=== PATIENT | male | born 1960 | race Caucasian/White ===

== ENCOUNTER 2021-10-28 07:46 | Inpatient (IN) ==
--- NOTE | 2021-10-08 10:11 | PAT Medication Instructions ---
Medication Instructions Date of Service October 08, 2021 Home Medications pantoprazole 20 mg tablet,delayed release 20 mg PO QAM Take morning of surgery With a small sip of water, OTHERWISE NOTHING TO EAT OR DRINK AFTER MIDNIGHT: pantoprazole 20 mg tablet,delayed release 20 mg PO QAM Other Notes If you have any questions please call us at [phone] or [phone] or [phone] or [phone]
--- NOTE | 2021-10-13 11:06 | Anesthesiology Consultation ---
Date of Service October 13, 2021 Assessment & Plan (1) Encounter for pre-operative examination: Chart Review Chart Review: Pending: Refer to Additional Notes / Consult section (pending preop labs/UA and preop Covid testing results ) and Patient seen in Pre Admission Testing Surgery initially scheduled for 10/29/21- surgery currently cancelled secondary to Covid surgery- patient has opted to wait until surgery rescheduled to get labs and UA done (order given to patient) Per PAT appt on 10/13/21, patient denies any recent travel or large group activities. No known Covid positive exposures or Covid related symptoms. No known Covid infection in the past 90 days. Pt is NOT vaccinated for Covid. Preop Covid testing needed 2-4 days prior to surgery (pt voices understanding) = will await results. Educated on importance of self quarantining, social distancing and wearing mask in public for the patient one week prior to surgery and after Covid testing done Teaching & Discussion Pre-Anesthesia Teaching/Discussion Notes: Instructed NPO after midnight before surgery,except medications with 15 cc of water. Medication instructions provided according to the PAT guidelines. History Surgery Operation Date: 10/29/21 07:45 Proposed Procedures p L4-S1 Decompression, L3-S1 Fusion, Spinal Cord Monitoring - Heraclio Betts, Height/Weight Height: 5 ft 8.5 in Weight: 101.3 kg Allergies Allergy/AdvReac Type Severity Reaction Status Date / Time No Known Allergies Allergy Verified 10/07/21 16:51 Medications Home Medications Medication Instructions Recorded Confirmed Last Taken pantoprazole 20 mg tablet,delayed 20 mg PO QAM 12/22/19 10/07/21 09/08/21 04:30 release Past Medical History Medical History Degenerative disc disease GERD (gastroesophageal reflux disease) Well controlled and stable with med History of COVID-13 JUL 2021 - [facility] - COUGH, MUCOUS, TIRED, FEVER, LOST TASTE AND SMELL - NO CURRENT SYMPTOMS. [place] (hard of hearing) No hearing aids needed Exercise / Class Metabolic Activity II 4-5 Yardwork/Stairs/Walk up hill (one flight of stairs - no chest or SOB) Past Family History Family History Daughter Post-operative nausea and vomiting Past Surgical History Surgical History History of cholecystectomy + umbilical hernia repair 09/08/21 [facility] History of colonoscopy History of esophagogastroduodenoscopy (EGD) History of hemorrhoidectomy History of shoulder surgery LEFT History of surgery REMOVAL OF BENIGN TUMOR FROM FOREHEAD History of tooth extraction Hx of LASIK Past Anesthesia History No Hx of Anesthesia Complications and No Family Hx of Anesthesia Complications (with exception to daughter- PONV ) Social History Smoking Status: Never smoker Do You Dip or Chew Tobacco: No (hx) Hx Alcohol Use: Yes Alcohol type: beer alcohol intake frequency: 3 or more drinks per day (2-3 beers/day) Hx Substance Use: No substance use type: does not use Review of Systems Hx of snoring - no witnessed apnea- no hx of sleep apnea Patient denies chest pain, shortness of breath, dyspnea on exertion,, cough, wheezing, palpitations. No hx of seizures, stroke, [place]. No hx of blood clots or blood transfusions Physical Exam Vital Signs VITALS BP 131/83 P 65 TEMP 97.9 SP02 95% RESP 16 Constitutional no acute distress ENMT Mouth: no TMJ clicking Thyromental Distance: > or= 3.5 Finger Breadths (3.5) Mallampati Class: II Partial dentures on top and bottom Neck + limited neck extension (mild ) Respiratory normal respiratory effort; no respiratory distress Auscultation: lungs clear to auscultation bilaterally; no wheezes Cardiovascular Rate/Rhythm: regular rate and regular rhythm Heart Sounds: no murmur Vessels: no carotid bruit Musculoskeletal Spine: no pain with cervical ROM Extremities: extremities normal to inspection Psychiatric Orientation: alert Testing Electrocardiogram Date: 08/27/21 Findings: + NSR @ (75bpm) Normal EKG per cardio. Chest X-Ray Date: 10/13/21 Findings: + NAD
--- NOTE | 2021-10-21 13:53 | History & Physical Report ---
Date of Service October 21, 2021 Assessment & Plan (1) Neurogenic claudication due to lumbar spinal stenosis: Plan: Assessment lumbar spinal stenosis with neurogenic medication. Plan at this time patient's failed extensive course of nonoperative care as it is a steady decline in status over the past several years. His most recent MRI demonstrates evidence of spinal stenosis most impressive at L4-L5 L5-S1 with components of subarticular foraminal disease clearly concerning for symptom complex. In light of his advanced decline and lack of function and involved the activities of daily living recommending urgent lumbar decompression fusion L4-5 L5-S1. History of Present Illness Chief Complaint: Back and bilateral leg pain Primary Care Provider: Jorge Luis Tillman DO This is a 61-year-old male who presents with steady decline in status over the past several years with back and bilateral leg pain. He is undergone several courses of physical therapy as well as epidural injection without a significant relief. He is limited to any prolonged standing and walking obtains relief only with sitting. Allergies Allergy/AdvReac Type Severity Reaction Status Date / Time No Known Allergies Allergy Verified 10/07/21 16:51 Home Medications Medication Instructions Recorded Confirmed Type pantoprazole 20 mg tablet,delayed 20 mg PO QAM 12/22/19 10/07/21 History release Past Med/Surg History Medical History Degenerative disc disease GERD (gastroesophageal reflux disease) Well controlled and stable with med History of COVID-13 JUL 2021 - [facility] - COUGH, MUCOUS, TIRED, FEVER, LOST TASTE AND SMELL - NO CURRENT SYMPTOMS. [place] (hard of hearing) No hearing aids needed Surgical History History of cholecystectomy + umbilical hernia repair 09/08/21 [facility] History of colonoscopy History of esophagogastroduodenoscopy (EGD) History of hemorrhoidectomy History of shoulder surgery LEFT History of surgery REMOVAL OF BENIGN TUMOR FROM FOREHEAD History of tooth extraction Hx of LASIK Family History Daughter Post-operative nausea and vomiting Social History Smoking Status: Never smoker Second Hand Exposure: No; Hx Alcohol Use: Yes Alcohol type: beer Hx Substance Use: No Preferred Language: [place] Communication Ability: Effective 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 Heart regular rhythm. Bench exam he is able to stand and ambulate with antalgic gait. He does exhibit limitation with standing in the room secondary to neurogenic claudicatory pain. Bench exam he has diminished reflexes with a 4/5 plantar dorsiflexion extensor hallucis longus bilaterally.
--- NOTE | 2021-10-22 15:21 | History & Physical Report ---
Date of Service October 22, 2021 Assessment & Plan (1) Neurogenic claudication due to lumbar spinal stenosis: Plan: Assessment lumbar spinal stenosis with neurogenic claudication. Plan at this time in light of his progressive decline and risk for permanent neurologic deficits I am recommending urgent lumbar decompression and fusion to address his severe spinal stenosis. This would require decompression L4-S1. Risk benefits pros cons alternatives were outlined in detail. History of Present Illness Chief Complaint: Back and bilateral leg pain Primary Care Provider: Jorge Luis Tillman DO This is a 61-year-old male who presents with marked decline in status involving back and bilateral leg pain consistent with neurogenic claudication. He notes inability to ambulate any distance. He has failed extensive course of physical therapy and multiple lumbar injections. Allergies Allergy/AdvReac Type Severity Reaction Status Date / Time No Known Allergies Allergy Verified 10/07/21 16:51 Home Medications Medication Instructions Recorded Confirmed Type pantoprazole 20 mg tablet,delayed 20 mg PO QAM 12/22/19 10/07/21 History release Past Med/Surg History Medical History Degenerative disc disease GERD (gastroesophageal reflux disease) Well controlled and stable with med History of COVID-13 JUL 2021 - [facility] - COUGH, MUCOUS, TIRED, FEVER, LOST TASTE AND SMELL - NO CURRENT SYMPTOMS. [place] (hard of hearing) No hearing aids needed Surgical History History of cholecystectomy + umbilical hernia repair 09/08/21 [facility] History of colonoscopy History of esophagogastroduodenoscopy (EGD) History of hemorrhoidectomy History of shoulder surgery LEFT History of surgery REMOVAL OF BENIGN TUMOR FROM FOREHEAD History of tooth extraction Hx of LASIK Family History Daughter Post-operative nausea and vomiting Social History Smoking Status: Never smoker Second Hand Exposure: No; Hx Alcohol Use: Yes Alcohol type: beer Hx Substance Use: No Preferred Language: Setswana Communication Ability: Effective Assisted Living Assistant Required: No Beliefs That Will Affect Care: None Current Living Situation: Alone Feels Safe at Home: Yes Physical Exam Physical Exam: On exam he is in obvious distress with ambulation. He exhibits 4-/5 bilateral dorsiflexion extensor pollicis longus. He is a 5 or 5 plantar flexion quadriceps. Sensory appears to be intact. Deep tendon reflexes absent.
[~2021-10-28 07:46] MED LIST: ACETAMINOPHEN 500 MG TAB PO SCH; CeleBREX 200 MG CAP PO SCH; GABAPENTIN 600 MG DOSE PO SCH; LR 15ML/HR IV SCH; SUGAMMADEX SODIUM 200 MG/2 ML VIAL IV ONE; ceFAZolin 2000MG 2,000 MG/15 ML SYR IV SCH
[2021-10-28] MEDS ORDERED: ePHEDrine sulfate 50 MG/ML AMP IV PRN (08:52)
[2021-10-28] MEDS ORDERED: fentaNYL citrate 100 MCG/2 ML VIAL IV PRN (08:52)
[2021-10-28] MEDS ORDERED: HYDROmorphone INJ 1 MG/ML SYRINGE IV PRN (08:52)
[2021-10-28] MEDS ORDERED: ATROPINE SULFATE 0.1 MG/ML 10ML SYR IV PRN (08:52)
[2021-10-28] MEDS ORDERED: ONDANSETRON INJ 2 MG/ML 2 ML VIAL IV PRN ×2 (08:52→15:47)
--- NOTE | 2021-10-28 10:00 | History & Physical Bridge Note ---
Date of Service October 28, 2021 History & Physical Bridge Note I have examined the patient, reviewed the History & Physical and in the interval since the performance of the History & Physical I have noted the following changes of clinical significance: no changes noted
--- NOTE | 2021-10-28 10:01 | History & Physical Report ---
Date of Service October 28, 2021 Assessment & Plan (1) Neurogenic claudication due to lumbar spinal stenosis: Plan: L4-S1 decompression, L3-S1 fusion History of Present Illness Chief Complaint: Back and leg pain Primary Care Provider: Jorge Luis Tillman DO This is a 61-year-old male presents with chronic persistent back and leg pain. Failing extensive course of nonoperative care is here for surgical invention. Allergies Allergy/AdvReac Type Severity Reaction Status Date / Time No Known Allergies Allergy Verified 10/28/21 08:48 Home Medications Medication Instructions Recorded Confirmed Type pantoprazole 20 mg tablet,delayed 20 mg PO QAM 12/22/19 10/28/21 History release Past Med/Surg History Medical History Degenerative disc disease GERD (gastroesophageal reflux disease) Well controlled and stable with med History of COVID-13 JUL 2021 - [facility] - COUGH, MUCOUS, TIRED, FEVER, LOST TASTE AND SMELL - NO CURRENT SYMPTOMS. [place] (hard of hearing) No hearing aids needed Surgical History History of cholecystectomy + umbilical hernia repair 09/08/21 [facility] History of colonoscopy History of esophagogastroduodenoscopy (EGD) History of hemorrhoidectomy History of shoulder surgery LEFT History of surgery REMOVAL OF BENIGN TUMOR FROM FOREHEAD History of tooth extraction Hx of LASIK Family History Daughter Post-operative nausea and vomiting Social History Smoking Status: Never smoker Second Hand Exposure: No; Do You Dip or Chew Tobacco: No (hx); Tobacco Cessation Education Requested by Patient: No Hx Alcohol Use: Yes Alcohol type: beer Hx Substance Use: No Preferred Language: Indonesian Communication Ability: Effective 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
[2021-10-28] MEDS ORDERED: EPINEPHrine INJ 1 MG/ML AMP ONE (10:07)
[2021-10-28] MEDS ORDERED: BUPIVACAINE 0.5 % 5 MG/1 ML MPF 30ML VIAL ONE (10:07)
[2021-10-28] MEDS ORDERED: ONDANSETRON INJ 2 MG/ML 2 ML VIAL ONE (10:10)
[2021-10-28] MEDS ORDERED: NEOSTIGMINE METHYLSULFATE 1 MG/ML 10ML VIAL ONE (10:10)
[2021-10-28] MEDS ORDERED: DEXAMETHASONE SOD INJ 4 MG/ML VIAL ONE (10:10)
[2021-10-28] MEDS ORDERED: GLYCOPYRROLATE 0.2 MG/ML VIAL ONE (10:10)
[2021-10-28] MEDS ORDERED: LIDOCAINE 2% 2 ML VIAL/AMP(20MG/ML) INFIL ONE (10:10)
[2021-10-28] MEDS ORDERED: MIDAZOLAM HCL 1 MG/ML 2ML VIAL ONE (10:10)
[2021-10-28] MEDS ORDERED: fentaNYL citrate 100 MCG/2 ML VIAL ONE (10:10)
[2021-10-28] MEDS ORDERED: PROPOFOL IV EMULSION 10 MG/ML 20 ML VIAL IV ONE ×2 (10:10→11:47)
[2021-10-28] MEDS ORDERED: HYDROmorphone INJ 2 MG/ML SYR/VIAL ONE (10:38)
[2021-10-28] MEDS ORDERED: FLOSEAL HEMOSTATIC MATRIX 10ML TOP ONE (10:59)
[2021-10-28] MEDS ORDERED: ePHEDrine sulfate 50 MG/ML SYR ONE (11:24)
--- NOTE | 2021-10-28 13:06 | Operative Report ---
Post Operative Report Pre & Post Diagnosis Operation Date: 10/28/21 10:05 Pre-Op Diagnosis: Spinal Stenosis,Lumbar Region without Neurogenic Post-Op Diagnosis: Spinal Stenosis,Lumbar Region without Neurogenic Operation Date: 10/29/21 07:45 <No data on this case meets the specified criteria> I identified the patient and participated in the time-out.: Yes Procedure Operation Date: 10/28/21 10:05 Actual Procedures #1 lumbar decompression bilateral medial facetectomies and foraminotomies L3-L4 L4-L5 L5-S1. #2 posterior spinal fusion L3-L4 L4-5 L5-S1. #3 placement posterior segmental instrumentation L3-S1. #4 interbody fusion L3-4, L4-5, L5- S1. #3 5 placement of titanium cage 11 x 26 mm at L3-L4 13 x 26 mm at L4-5 and 13 x 26 mm at L5-S1. #6 placement locally harvested morselized autograft in the posterior gutters. #7 placement of I factor combined with V toss in the interbody space and posterior lateral gutters. <No data on this case meets the specified criteria> Surgeon Heraclio Betts, DO Medical Appliance Maker Yocasta Pat Estimated Blood Loss 200 Findings See Below Patient is 5 foot 8 inches tall weighing over 97 kg with a BMI in excess of 32. The patient's body habitus did require her deepest retractors longus instruments in order to perform his procedure. This at least 50% increased operative time. Specimens None Indications this is a 61-year-old male who presents above-mentioned diagnosis after failing course of nonoperative care is here for surgical invention. Description of Procedure Patient was met with identified informed consent obtained. Patient was then taken to the operative suite underwent ablation placed in a prone position on the [facility] frame. All bony prominences well-padded eyes inspected to ensure no external pressure placed upon the. This point the lumbar spine is prepped and draped in a sterile fashion. Sharp dissection with the assistance of Bovie cautery was performed down to and exposing the lamina transverse processes of L3-L4-L5 and the sacral ala bilaterally. From caudal to cephalad fashion complete laminectomy of L5 L4 and L3 was performed including bilateral medial facetectomies and foraminotomies addressing all spinal stenosis. Pedicle screws were then placed in L3-L4-L5 and S1 levels bilaterally with assistance of fluoroscopy and appropriately sized mikel placed. By way the transforaminal approach on the right a complete discectomy of L5-S1 was performed endplates curetted to subcortical being bone and a 13 x 26 mm titanium cage filled with I factor tapped in position. Then proceeded to L4-L5 and again by way of a transforaminal portion right complete discectomy performed endplates curetted to subcortical bleeding bone and again a 13 x 26 mm titanium cage filled with I factor tapped in position. Lastly approached the L3-L4 level again bilateral transforaminal portion right complete discectomy performed endplates curetted to subcortical bleeding bone and an 8 x 26 mm titanium cage filled with I factor tapped in position. The rods were then compressed locked into final position bilaterally. The transverse processes of L3-L4-L5 and the sacral ala burred to subcortically bone. The remaining I factor combined with V toss and locally harvested morselized autograft was placed in the posterior lateral gutters. 15 round JEANETTE drain inserted. The incision was then closed with 1 Vicryl in the fascia 2-0 Vicryl subcutaneously and 4 Monocryl for final skin closure. Steri-Strip sterile dressing was placed. Patient waken taken to PACU stable condition. Please note spinal cord monitoring was utilized at the proced ure no changes noted. Lastly Yocasta Pat was present at the entire surgery involved in patient positioning complex portions of the procedure and final skin closure. I attest to the content of the Intraoperative Record and any orders documented therein. Any exceptions are noted below.
--- NOTE | 2021-10-28 13:14 | Fluoroscopy Report ---
FL lumbar spine 2-3V CLINICAL HISTORY: L3-S1 decompression and fusion. COMPARISON STUDY: None. FLUOROSCOPY TIME: 33 seconds. FINDINGS: 2 fluoroscopic spot images of the lumbar spine demonstrate posterior decompression and fusi on from L3 through S1 with pedicle screws and rods. Hardware appears intact. Disc spacers are placed. IMPRESSION: Fluoroscopic assistance provided for L3-S1 posterior decompression and fusion. ACT 112: Negative or not required by law. Electronically signed by: Raffaele Manzo M.D. 10/28/2021 1:12 PM
--- NOTE | 2021-10-28 14:51 | Anesthesiology Progress Note ---
Date of Service October 28, 2021 Anesthesia Post Procedure Vital Signs Vital Signs: Temp Pulse Pulse Resp BP Pulse Ox 10/28/21 14:25 67 10 L 125/71 96 10/28/21 14:15 66 12 123/68 92 10/28/21 14:05 68 12 144/83 H 99 10/28/21 13:55 69 12 123/80 95 10/28/21 13:45 69 12 129/73 98 10/28/21 13:35 76 15 129/79 100 10/28/21 13:27 97.7 F 99 H 14 140/73 97 10/28/21 08:49 97.9 F 63 18 139/66 96 Pain Intensity Lower Back: Pain Intensity: 6 Transfer of Care Handoff Completed per policy Notes Mental Status: alert / awake / arousable and participated in evaluation Patient Amnestic to Procedure: Yes Nausea / Vomiting: adequately controlled Pain: adequately controlled Airway Patency, RR, SpO2: stable & adequate BP & HR: stable & adequate Hydration State: stable & adequate Anesthetic Complications: no major complications apparent and Pt Satisfied with anesthetic care
[2021-10-28] MEDS ORDERED: METOCLOPRAMIDE HCL INJ 5 MG/ML 2 ML VIAL IV PRN (15:47)
[2021-10-28] MEDS ORDERED: DO NOT ADMINISTER PNEUMOCOCCAL VACCINE PRN (15:47)
[2021-10-28] MEDS ORDERED: LORazepam 0.5 MG/1 ML VIAL IV PRN (15:47)
[2021-10-28] MEDS ORDERED: SOD PHOSPHATE/SOD BIPHOSPHATE ENEMA 132 ML BTL PR PRN (15:47)
[2021-10-28] MEDS ORDERED: PROMETHAZINE HCL 12.5 MG in SODIUM CHLORIDE 0.9% 50 ML IV PRN (15:47)
[2021-10-28] MEDS ORDERED: FAMOTIDINE 20 MG TAB PO PRN (15:47)
[2021-10-28] MEDS ORDERED: hydrOXYzine HCl 25 MG TAB PO PRN (15:47)
[2021-10-28] MEDS ORDERED: DO NOT ADMINISTER FLU VACCINE PRN (15:47)
[2021-10-28] MEDS ORDERED: diphenhydrAMINE Capsule 25 MG CAP PO PRN (15:47)
[2021-10-28] MEDS ORDERED: LORazepam 0.5 MG TAB PO PRN (15:47)
[2021-10-28] MEDS ORDERED: ALUMINUM/MAGNESIUM SUSP 30 ML UDC PO PRN (15:47)
[2021-10-28] MEDS ORDERED: MAGNESIUM HYDROXIDE SUSP 30 ML UDC PO PRN (15:47)
[2021-10-28] MEDS ORDERED: NALOXONE HCL 0.4 MG/1 ML VIAL/CARP IV PRN (15:47)
[2021-10-28] MEDS ORDERED: ONDANSETRON 4 MG OD TAB PO PRN (15:47)
[2021-10-28] MEDS ORDERED: bisacodyL 10 MG SUPP PR PRN (15:47)
[2021-10-28] MEDS ORDERED: HYDROmorphone INJ 0.5 MG/0.5 ML SYR IV PRN (15:47)
--- NOTE | 2021-10-28 16:07 | Consultation ---
Date of Consultation October 28, 2021 Assessment & Plan (1) Neurogenic claudication due to lumbar spinal stenosis: (2) GERD (gastroesophageal reflux disease): (3) Sleep related hypoxia: (4) Alcohol use: Neurogenic claudication due to lumbar spinal stenosis Actual Procedures #1 lumbar decompression bilateral medial facetectomies and foraminotomies L3-L4 L4-L5 L5-S1. #2 posterior spinal fusion L3-L4 L4-5 L5-S1. #3 placement posterior segmental instrumentation L3-S1. #4 interbody fusion L3-4, L4-5, L5- S1. #3 5 placement of titanium cage 11 x 26 mm at L3-L4 13 x 26 mm at L4-5 and 13 x 26 mm at L5-S1. #6 placement locally harvested morselized autograft in the posterior gutters. #7 placement of I factor combined with V toss in the interbody space and posterior lateral gutters. POD # [address] Betts EBL 200ml ; monitor JEANETTE output pre op hgb 14.4 tolerated procedure well encourage incentive spirometry pain/wound management per ortho activity and therapy as per ortho monitor hgb Sleep related hypoxia post operatively continue continuous pulse ox, Oxygen for sat < 92% no personal hx of ADRIANA, +snoring, + elevated BMI will need outpt sleep study eval, consider nocturnal pulse ox tomorrow evening to determine needs Alcohol use drinks 2 light beers daily, no prior hx of withdrawal place on AWSS protocol, prn ativan Gerd recent cholecystectomy 5 weeks ago continue PPI Dispo: Per primary PCP: Kailey Bundy FULL CODE Pt was seen and examined in collaboration with Dr. Murillo, please see addendum Thank you for this consultation. We will follow the patient with you during their hospital stay. You can reach a member of the [facility] Hospitalist Team 17/05 via hospitalist role on tiger text. Supervising Physician Co-Signing Physician Notes I have seen and examined the patient and have discussed the case with the provider above. I agree with the assessment and plan as stated. 61-year-old man status post lumbar decompression and spinal fusion by Dr. Betts. Medicine consulted for postop medical management. Patient is recovering well in pain is well managed. Denies any nausea and tolerating p.o. He is afebrile. He is hemodynamically stable. Continue current management and agree with plan as above. Would hold off on formal pulse oximetry study while patient is hos pitalized postoperatively. Defer to outpatient sleep study for formal determination of needs. DO Chidi History of Present Illness Requesting Physician: Dr. Betts Reason for Consultation: Post op medical management Attending Physician: Heraclio Betts DO History of Present Illness This is a 61 year old male who has significant PMH of HLD, GERD, daily alcohol use who presents for back surgery by Dr. Betts. He has been having chronic back pain for 5 years, but much worse over last 2 years. He complained of pain to b/l lower extremities with numbness to toes. Currently he continues to feel effects of anesthesia. Prior to surgery denies f/c/s, chest pain, sob, cough, uri sx, n/v/d, change in bowel or urinary habits. He does have a guardado cath in. Approx 5-6 weeks ago he has his gallbladder removed and has been doing fine with this. Per nursing staff but has been having hypoxic episodes since post op specifically when falling asleep. Per nurse pt desaturated into 70s when fell asleep. He denies prior hx of ADRIANA, but has not been tested. His girlfriend says he snores but no witnessed apneic episodes. He does have hx of GERD and he is on a PPI. This is under control. He also has hx of daily alcohol use with 2 light beers daily. Last use was last night. He admits to abstaining w/o withdrawal sx. Allergies Allergy/AdvReac Type Severity Reaction Status Date / Time No Known Allergies Allergy Verified 10/28/21 08:48 Home Medications Medication Instructions Recorded Confirmed Type pantoprazole 20 mg tablet,delayed 20 mg PO QAM 12/22/19 10/28/21 History release Patient History Medical History (Updated 10/28/21 @ 16:32 by Amanda Corona PA-C) Degenerative disc disease GERD (gastroesophageal reflux disease) Well controlled and stable with med History of COVID-13 JUL 2021 - [facility] - COUGH, MUCOUS, TIRED, FEVER, LOST TASTE AND SMELL - NO CURRENT SYMPTOMS. [place] (hard of hearing) No hearing aids needed Surgical History History of cholecystectomy + umbilical hernia repair 09/08/21 [facility] History of colonoscopy History of esophagogastroduodenoscopy (EGD) History of hemorrhoidectomy History of shoulder surgery LEFT History of surgery REMOVAL OF BENIGN TUMOR FROM FOREHEAD History of tooth extraction Hx of LASIK Family History Daughter Post-operative nausea and vomiting Father Lung cancer Mother Breast cancer Social History Smoking Status: Never smoker Second Hand Exposure: No; Do You Dip or Chew Tobacco: No (hx); Tobacco Cessation Education Requested by Patient: No Hx Alcohol Use: Yes Alcohol type: beer Hx Substance Use: No Preferred Language: Latvian Communication Ability: Effective Lna Required: No Beliefs That Will Affect Care: None Current Living Situation: Alone Feels Safe at Home: Yes Safety Concerns: Feels Safe At This Time Assistive Devices: Cane Assistive Devices Comment: upper and lower partials Review of Systems Review of Systems: All systems reviewed & are unremarkable except as noted in HPI & below Physical Exam Physical Exam: Constitutional: WD/WN, vitals as above, NAD, sitting up in bed, pleasant, conversing easily Head: Normocephalic, Atraumatic Eyes: PERRL, conjunctivae normal, anicteric sclerae ENMT: external ear and nose normal, oropharynx normal Neck: trachea midline, no thyromegaly normal visual inspection Respiratory: normal respiratory effort, lungs clear to auscultation, no wheeze, rales, rhonchi. on 3L of O2 via NC. Normal insp/exp effort, no accessory muscle use Cardiovascular: RRR, no murmur, no edema Vessels: no JVD or carotid bruit Chest: normal inspection of chest Abdomen: normal bowel sounds, soft, nontender, no hepatosplenomegaly Musculoskeletal: no cyanosis or clubbing, AROM x 4. JEANETTE drain with serosang drainage Skin: no rashes, warm and dry normal turgor Neurologic: PERRL, EOMI, accommodation nl, no face palsy, no dysarthria CN's II-XI intact bilaterally and moves all extremities Psychiatric: A+Ox3, euthymic affect Lymphatic: no cervical or axillary lymphadenopathy : + guardado cath with yellow urine Results & Data ([facility]) Vital Signs (Past 12 Hours) Vital Signs Temp Pulse Pulse Resp BP Pulse Ox Pulse Ox 10/28/21 15:56 100 10/28/21 15:45 36.7 C 16 133/87 94 10/28/21 15:25 36.2 C L 70 18 122/64 100 10/28/21 15:15 70 10 L 115/63 100 10/28/21 15:05 67 12 124/67 100 10/28/21 14:55 70 10 L 124/66 100 10/28/21 14:45 82 9 L 125/78 100 10/28/21 14:35 67 9 L 126/67 99 10/28/21 14:25 67 10 L 125/71 96 10/28/21 14:15 66 12 123/68 92 10/28/21 14:05 68 12 144/83 H 99 10/28/21 13:55 69 12 123/80 95 10/28/21 13:45 69 12 129/73 98 10/28/21 13:35 76 15 129/79 100 10/28/21 13:27 36.5 C 99 H 14 140/73 97 10/28/21 08:49 36.6 C 63 18 139/66 96 Laboratory Results Preoperative lab work 10/16, hemoglobin 14.4, moderate three 1.4, WBC 5.03, platelet 135, BUN 16, creatinine 1.02 Diagnostic Findings Lumbar Spine X-Ray 10/28/21 10:05 FL lumbar spine 2-3V CLINICAL HISTORY: L3-S1 decompression and fusion. COMPARISON STUDY: None. FLUOROSCOPY TIME: 33 seconds. FINDINGS: 2 fluoroscopic spot images of the lumbar spine demonstrate posterior decompression and fusion from L3 through S1 with pedicle screws and rods. Hardware appears intact. Disc spacers are placed. IMPRESSION: Fluoroscopic assistance provided for L3-S1 posterior decompression and fusion. ACT 112: Negative or not required by law. Electronically signed by: Raffaele Manzo M.D. 10/28/2021 1:12 PM Pre op CXR no acute abnormality 10/13/21 Medications Administered Current Inpatient Medications Acetaminophen (Acetaminophen 500 Mg Tab) 1,000 mg PO PREOP SHOLA Stop: 10/28/21 18:00 Last Admin: 10/28/21 09:05 Dose: 1,000 mg Documented by: Acetaminophen (Acetaminophen 500 Mg Tab) 1,000 mg PO Q8H PRN PRN Reason: MILD Pain Scale 1,2,3 & Pre PT Stop: 11/27/21 15:46 Al Hydrox/Mg Hydrox/Simethicone (Aluminum/Magnesium Susp 30 Ml Udc) 30 ml PO Q6H PRN PRN Reason: Dyspepsia Stop: 11/27/21 15:46 Atropine Sulfate (Atropine Sulfate 0.1 Mg/Ml 10ml Syr) 0.5 mg IV Q1M PRN PRN Reason: PACU Use-HR<40 &/or Bradycardi Stop: 10/28/21 16:52 Bisacodyl (Bisacodyl 10 Mg Supp) 10 mg [place] DAILY PRN PRN Reason: Constipation Stop: 11/27/21 15:46 Celecoxib (Celebrex 200 Mg Cap) 200 mg PO PREOP SHOLA Stop: 10/28/21 18:00 Last Admin: 10/28/21 09:05 Dose: 200 mg Documented by: Diphenhydramine HCl (Diphenhydramine Capsule 25 Mg Cap) 25 mg PO Q6H PRN PRN Reason: Allergic Rhinitis/Insomnia Stop: 11/27/21 15:46 Ephedrine Sulfate (Ephedrine Sulfate 50 Mg/Ml Amp) 5 mg IV Q5M PRN PRN Reason: PACU Use Only-SBP<90 mmHg Stop: 10/28/21 16:52 Famotidine (Famotidine 20 Mg Tab) 20 mg PO Q12H PRN PRN Reason: Dyspepsia Stop: 11/27/21 15:46 Fentanyl Citrate (Fentanyl Citrate 100 Mcg/2 Ml Vial) 50 mcg IV Q5M PRN PRN Reason: PACU Use Only-Pain Stop: 10/28/21 16:52 Last Admin: 10/28/21 13:37 Dose: 50 mcg Documented by: Gabapentin (Gabapentin 600 Mg Dose) 600 mg PO PREOP SHOLA Stop: 10/28/21 18:00 Last Admin: 10/28/21 09:05 Dose: 600 mg Documented by: Hydromorphone HCl (Hydromorphone Inj 1 Mg/Ml Syringe) 0.25 mg IV Q5M PRN PRN Reason: PACU Use Only-Pain Stop: 10/28/21 16:53 Hydromorphone HCl (Hydromorphone Inj 0.5 Mg/0.5 Ml Syr) 0.5 mg IV Q3H PRN PRN Reason: MODERATE Pain (Scale 4,5,6) & Pre PT Stop: 11/11/21 15:46 Hydromorphone HCl (Hydromorphone Inj 1 Mg/Ml Syringe) 1 mg IV Q3H PRN PRN Reason: SEVERE Pain (Scale 7,8,9,10) Stop: 11/11/21 15:46 Hydroxyzine HCl (Hydroxyzine Hcl 25 Mg Tab) 25 mg PO Q8H PRN PRN Reason: Anxiety Stop: 11/27/21 15:46 Lactated Ringer's (Lr) 1,000 mls @ 15 mls/hr IV .Q24H SHOLA Stop: 10/29/21 05:59 Last Infusion: 10/28/21 10:20 Dose: Infused Documented by: Cefazolin Sodium (Ancef 2000mg) 2,000 mg in 15 mls @ 3.75 mls/min IV PREOP SHOLA; Protocol Stop: 10/28/21 18:00 Last Admin: 10/28/21 10:20 Dose: 3.75 mls/min Documented by: Cefazolin Sodium (Ancef 2000mg) 2,000 mg in 15 mls @ 3.75 mls/min IV Q8H SHOLA; Protocol Stop: 10/29/21 02:03 Lactated Ringer's (Lr) 1,000 mls @ 150 mls/hr IV .Q6H40M SHOLA Stop: 11/27/21 15:59 Acetaminophen (Ofirmev) 1,000 mg in 100 mls @ 400 mls/hr IV Q8H PRN PRN Reason: Pain Rating 1-3 & Pre PT Stop: 10/31/21 15:46 Lorazepam (Ativan) 0.5 mg in 1 mls @ 1 mls/min IV Q8H PRN PRN Reason: Sedation/Anxiety Stop: 11/27/21 15:46 Promethazine HCl 12.5 mg/ (Sodium Chloride) 50.5 mls @ 202 mls/hr IV Q6H PRN PRN Reason: Nausea &/or Vomiting Stop: 11/27/21 15:46 Influenza Virus Vaccine Quadrival (Do Not Administer Flu Vaccine) 1 ea N/A PRN PRN PRN Reason: Notification Stop: 11/27/21 15:46 Ketorolac Tromethamine (Ketorolac 30 Mg/Ml Vial) 30 mg IV Q6H SHOLA Stop: 10/29/21 10:01 Lorazepam (Lorazepam 0.5 Mg Tab) 0.5 mg PO Q8H PRN PRN Reason: Sedation/Anxiety Stop: 11/27/21 15:46 Magnesium Hydroxide (Magnesium Hydroxide Susp 30 Ml Udc) 30 ml PO Q24H PRN PRN Reason: Constipation Stop: 11/27/21 15:46 Metoclopramide HCl (Metoclopramide Hcl Inj 5 Mg/Ml 2 Ml Vial) 10 mg IV Q6H PRN PRN Reason: Nausea &/or Vomiting Stop: 11/27/21 15:46 Naloxone HCl (Naloxone Hcl 0.4 Mg/1 Ml Vial/Carp) 0.1 mg IV Q5M PRN PRN Reason: Oversedation/Resp depression Stop: 11/27/21 15:46 Ondansetron HCl (Ondansetron Inj 2 Mg/Ml 2 Ml Vial) 4 mg IV ONCE PRN PRN Reason: PACU Use Only-Nausea/Vomiting Stop: 10/28/21 16:54 Ondansetron HCl (Ondansetron Inj 2 Mg/Ml 2 Ml Vial) 4 mg IV Q6H PRN PRN Reason: Nausea &/or Vomiting Stop: 11/27/21 15:46 Ondansetron HCl (Ondansetron 4 Mg Od Tab) 4 mg PO Q6H PRN PRN Reason: Nausea Stop: 11/27/21 15:46 Oxycodone HCl (Oxycodone Hcl Ir 5 Mg Tab (Immediate Release)) 5 - 10 mg PO Q4H PRN PRN Reason: Pain & Pre PT Stop: 11/11/21 15:46 Pantoprazole Sodium (Pantoprazole 40 Mg Tab) 40 mg PO QAM SHOLA Stop: 11/28/21 08:59 Pneumococcal Polyvalent Vaccine (Do Not Administer Pneumococcal Vaccine) 1 ea N/A PRN PRN PRN Reason: Notification Stop: 11/27/21 15:46 Polyethylene Glycol (Polyethylene (Miralax) 17 Gm Pack) 17 gm PO Q6 SHOLA Stop: 11/28/21 05:59 Senna/Docusate Sodium (Docusate Sodium/Senna 50/8.6mg Tab) 2 tab PO HS SHOLA Stop: 11/27/21 20:59 Sodium Biphosphate/Sodium Phosphate (Sod Phosphate/Sod Biphosphate Enema 132 Ml Btl) 132 ml [place] ONE PRN PRN Reason: Constipation Stop: 11/27/21 15:46 Tramadol HCl (Tramadol Hcl 50 Mg Tablet) 50 - 100 mg PO Q4H PRN PRN Reason: Moderate-Severe pain & Pre PT Stop: 11/27/21 15:46
[2021-10-28] MEDS ORDERED: LORazepam 1 MG TAB PO PRN (16:43)
[2021-10-28] MEDS: LACTATED RINGER'S 1,000 ML IV SCH ×2 (16:45→22:40)
[2021-10-28] MEDS: KETOROLAC 30 MG/ML VIAL IV SCH ×2 (16:48→21:18)
[2021-10-28] MEDS: ceFAZolin 2000MG 2,000 MG/15 ML SYR IV SCH (18:06)
[2021-10-28] MEDS: DOCUSATE SODIUM/SENNA 50/8.6MG TAB PO SCH (21:24)
[2021-10-28] MEDS: ACETAMINOPHEN 1,000 MG/100 ML VIAL IV PRN (22:40)
[2021-10-29] MEDS: ceFAZolin 2000MG 2,000 MG/15 ML SYR IV SCH (02:57)
[2021-10-29] MEDS: KETOROLAC 30 MG/ML VIAL IV SCH ×2 (03:05→09:28)
[2021-10-29] MEDS: POLYETHYLENE (MIRALAX) 17 GM PACK PO SCH ×4 (05:21→23:49)
[2021-10-29 05:55] LABS: Eosinophils # (auto) 0.01 K/uL (0-0.5); Eosinophils % (auto) 0.1 %; Hematocrit (blood only) 33.7 % (42-52); Hemoglobin 11.5 g/dL (14.0-18.0); Immature Granulocytes # (auto) 0.04 K/uL (0.00-0.02); Immature Granulocytes % (auto) 0.5 %; Lymphocytes % (auto) 7.5 %; Mean Corpuscular Hemoglobin 31.6 pg (25-34); Mean Corpuscular Hgb Conc 34.1 g/dL (32-36); Mean Corpuscular Volume 92.6 fL (80-100); Mean Platelet Volume 10.7 fL (7.4-10.4); Monocytes # (auto) 0.62 K/uL (0.11-0.59); Monocytes % (auto) 7.8 %; Neutrophils % (auto) 84.1 %; Platelet Count 135 K/uL (130-400); RDW Coefficient of Variation 13.5 % (11.5-14.5); Red Blood Count 3.64 M/uL (4.7-6.1); White Blood Count 7.97 K/uL (4.8-10.8)
[2021-10-29] MEDS: LACTATED RINGER'S 1,000 ML IV SCH (06:05)
[2021-10-29 06:26] LABS: BUN Creatinine Ratio 14.4 (10-20); Calcium 8.8 mg/dl (8.5-10.1); Creatinine Clr Calc Pharmacy 94.7 ml/min; Est GFR (African American) 99.9 ml/min; Est GFR (Non-African American) 86.2 ml/min; Potassium 4.2 mmol/L (3.5-5.1)
[2021-10-29] MEDS: PANTOprazole 40 MG TAB PO SCH (09:28)
--- NOTE | 2021-10-29 13:07 | Orthopedic Progress Note ---
Date of Service October 29, 2021 Assessment & Plan (1) Neurogenic claudication due to lumbar spinal stenosis: Plan: At this time we will continue physical therapy monitor his JEANETTE operatively discharge home in the next few days. Admission and Anticipated Discharge Date Admission Date: October 28, 2021 Subjective Back pain controlled leg symptoms markedly improved Physical Exam Physical Exam: On exam patient is in the chair at the bedside. Is good s trength testing. Appears comfortable. Results & Data ([facility]) Vital Signs (Past 12 Hours) Vital Signs Temp Pulse Pulse Resp BP Pulse Ox 10/29/21 07:01 36.6 C 62 16 105/67 99 10/29/21 02:59 36.5 C 72 18 101/62 99
[2021-10-29] MEDS: ACETAMINOPHEN 1,000 MG/100 ML VIAL IV PRN (13:27)
--- NOTE | 2021-10-29 15:48 | Hospitalist Progress Note ---
Date of Service October 29, 2021 Assessment & Plan (1) Neurogenic claudication due to lumbar spinal stenosis: (2) GERD (gastroesophageal reflux disease): (3) Sleep related hypoxia: (4) Alcohol use: Plan: Neurogenic claudication due to lumbar spinal stenosis - POD#1 L4-L5, L5-S1 decompression fusion - activity and wound care orders as per ortho - pain control with bowel regimen - PT/OT - monitor H/H for acute blood loss anemia and transfuse blood products PRN - EBL 200 cc, drain output 508 cc to date Postoperative acute blood loss anemia -Preop Hgb 14.4 --> 11.5 -No indication for transfusion at this time Sleep related hypoxia post operatively continue continuous pulse ox, Oxygen for sat < 92% no personal hx of ADRIANA, +snoring, + elevated BMI will need outpt sleep study eval, nocturnal pulse ox ordered Saturating well on room air while awake Alcohol use drinks 2 light beers daily, no prior hx of withdrawal place on AWSS protocol, prn ativan No signs of withdrawal Gerd recent cholecystectomy 5 weeks ago continue PPI DVT prophylaxis TEDs/SCDs as per spine Ortho Thank you for this consultation. We will follow the patient with you during their hospital stay. You can reach a member of the [facility] Hospitalist Team 17/05 via hospitalist role on tiger text. Admission and Anticipated Discharge Date Admission Date: October 28, 2021 Supervising Physician Co-Signing Physician Notes I have seen and examined the patient and have discussed the case with the provider above. I agree with the assessment and plan as stated. 61 yo M POD #1 s/p back surgery. Pain is well managed. Drain still in place. Moving as expected. No acute issues. Physical exam as above. Denies any numbness or tingling in his feet. Cont per plan above. Repeat CBC in for monitoring of expected blood loss anemia. Ida ,DO Subjective Patient seen and examined. Follow-up for medical management s/p back surgery. Patient sitting up in the chair. Reports pain is well controlled. No chest pain or shortness of breath. Blackmon catheter remains in place, +flatus and BM. No abdominal pain or nausea. Review of Systems Review of Systems: ROS per HPI, all other systems reviewed and negative Physical Exam Constitutional: WD/WN, vitals as above Respiratory: normal respiratory effort, lungs clear to auscultation Cardiovascular: Rate/Rhythm: regular rate and regular rhythm Vessels: normal peripheral pulses Extremities: no edema Gastrointestinal (Abdomen): Percussion/Palpation: abdomen soft; abdomen nontender Musculoskeletal: S/p back surgery, strength strong and equal BLE, drain in place draining bloody drainage Skin: no rashes, warm and dry Neurologic: no focal motor deficits Psychiatric: A+Ox3, euthymic affect Results & Data Results & Data ([facility]) Vital Signs (Past 12 Hours) Vital Signs Temp Pulse Resp BP Pulse Ox 10/29/21 15:15 36.7 C 68 16 125/69 96 10/29/21 07:01 36.6 C 62 16 105/67 99 Laboratory Results Short CBC 10/29/21 Range/Units 05:38 WBC 7.97 (4.8-10.8) K/uL Hgb 11.5 L (14.0-18.0) g/dL Hct 33.7 L (42-52) % Plt Count 135 (130-400) K/uL BMP 10/29/21 05:38 Sodium 139 Potassium 4.2 Chloride 107 Carbon Dioxide 28 BUN 14 Creatinine 0.96 Glucose 113 H Calcium 8.8
[2021-10-29] MEDS: oxyCODONE HCL IR 5 MG TAB (IMMEDIATE RELEASE) PO PRN ×2 (18:36→19:25)
[2021-10-29] MEDS: DOCUSATE SODIUM/SENNA 50/8.6MG TAB PO SCH (20:58)
[2021-10-29] MEDS: ACETAMINOPHEN 500 MG TAB PO PRN (22:31)
[2021-10-30] MEDS: HYDROmorphone INJ 1 MG/ML SYRINGE IV PRN ×2 (01:44→07:56)
[2021-10-30] MEDS: oxyCODONE HCL IR 5 MG TAB (IMMEDIATE RELEASE) PO PRN ×4 (04:18→20:39)
[2021-10-30 07:27] LABS: Hematocrit (blood only) 32.7 % (42-52); Hemoglobin 11.2 g/dL (14.0-18.0); Mean Corpuscular Hemoglobin 32.1 pg (25-34); Mean Corpuscular Hgb Conc 34.3 g/dL (32-36); Mean Corpuscular Volume 93.7 fL (80-100); Mean Platelet Volume 10.5 fL (7.4-10.4); Platelet Count 117 K/uL (130-400); RDW Coefficient of Variation 13.9 % (11.5-14.5); RDW Standard Deviation 47.4 fL (36.4-46.3); Red Blood Count 3.49 M/uL (4.7-6.1); White Blood Count 6.31 K/uL (4.8-10.8)
[2021-10-30 07:55] LABS: BUN Creatinine Ratio 17.6 (10-20); Calcium 8.1 mg/dl (8.5-10.1); Creatinine Clr Calc Pharmacy 98.8 ml/min; Est GFR (African American) 105.1 ml/min; Est GFR (Non-African American) 90.7 ml/min; Potassium 4.2 mmol/L (3.5-5.1)
[2021-10-30] MEDS: PANTOprazole 40 MG TAB PO SCH (07:57)
--- NOTE | 2021-10-30 08:36 | Orthopedic Progress Note ---
Date of Service October 30, 2021 Assessment & Plan (1) Neurogenic claudication due to lumbar spinal stenosis: Plan: At this time we will continue physical therapy monitor his JEANETTE output anticipate possible discharge home tomorrow. Admission and Anticipated Discharge Date Admission Date: October 28, 2021 Subjective Patient's back pain is controlled, more severe today. Denies any leg pain. Physical Exam Physical Exam: On exam he is neurologically intact. Results & Data ([facility]) Vital Signs (Past 12 Hours) Vital Signs Temp Pulse Pulse Resp BP Pulse Ox Pulse Ox 10/30/21 07:01 37.3 C 73 16 126/70 95 10/30/21 03:51 84 89 L 10/30/21 00:25 75 96 10/29/21 22:26 37.1 C 89 18 123/68 98 10/29/21 21:15 81 97
[2021-10-30] MEDS: dexAMETHasone 8 MG in SYRINGE 0 ML IV SCH (09:01)
[2021-10-30] MEDS: ACETAMINOPHEN 500 MG TAB PO PRN (12:48)
[2021-10-30] MEDS: traMADol HCL 50 MG TABLET PO PRN ×2 (16:51→23:16)
--- NOTE | 2021-10-30 18:47 | Hospitalist Progress Note ---
Date of Service October 30, 2021 Assessment & Plan (1) Neurogenic claudication due to lumbar spinal stenosis: (2) GERD (gastroesophageal reflux disease): (3) Sleep related hypoxia: (4) Alcohol use: Plan: Neurogenic claudication due to lumbar spinal stenosis - POD#1 L4-L5, L5-S1 decompression fusion - activity and wound care orders as per ortho - pain control with bowel regimen - PT/OT - monitor H/H for acute blood loss anemia and transfuse blood products PRN - EBL 200 cc, drain output 508 cc to date Postoperative acute blood loss anemia -Preop Hgb 14.4 --> 11.5 -No indication for transfusion at this time Sleep related hypoxia post operatively continue continuous pulse ox, Oxygen for sat < 92% no personal hx of ADRIANA, +snoring, + elevated BMI will need outpt sleep study eval, nocturnal pulse ox ordered Saturating well on room air while awake Alcohol use drinks 2 light beers daily, no prior hx of withdrawal place on AWSS protocol, prn ativan No signs of withdrawal Gerd recent cholecystectomy 5 weeks ago continue PPI DVT prophylaxis TEDs/SCDs as per spine Ortho Thank you for this consultation. We will follow the patient with you during their hospital stay. You can reach a member of the [facility] Hospitalist Team 17/05 via hospitalist role on tiger text. Admission and Anticipated Discharge Date Admission Date: October 28, 2021 Results & Data Results & Data ([facility]) Vital Signs (Past 12 Hours) Vital Signs Temp Pulse Resp BP Pulse Ox 10/30/21 15:08 37.2 C 71 16 124/72 94 10/30/21 07:01 37.3 C 73 16 126/70 95 Laboratory Results Short CBC 10/30/21 Range/Units 07:08 WBC 6.31 (4.8-10.8) K/uL Hgb 11.2 L (14.0-18.0) g/dL Hct 32.7 L (42-52) % Plt Count 117 L (130-400) K/uL BMP 10/30/21 07:08 Sodium 140 Potassium 4.2 Chloride 108 H Carbon Dioxide 29 BUN 16 Creatinine 0.92 Glucose 95 Calcium 8.1 L Medications Administered Current Inpatient Medications Acetaminophen (Acetaminophen 500 Mg Tab) 1,000 mg PO Q8H PRN PRN Reason: MILD Pain Scale 1,2,3 & Pre PT Stop: 11/27/21 15:46 Last Admin: 10/30/21 12:48 Dose: 1,000 mg Documented by: Al Hydrox/Mg Hydrox/Simethicone (Aluminum/Magnesium Susp 30 Ml Udc) 30 ml PO Q6H PRN PRN Reason: Dyspepsia Stop: 11/27/21 15:46 Bisacodyl (Bisacodyl 10 Mg Supp) 10 mg [place] DAILY PRN PRN Reason: Constipation Stop: 11/27/21 15:46 Diphenhydramine HCl (Diphenhydramine Capsule 25 Mg Cap) 25 mg PO Q6H PRN PRN Reason: Allergic Rhinitis/Insomnia Stop: 11/27/21 15:46 Famotidine (Famotidine 20 Mg Tab) 20 mg PO Q12H PRN PRN Reason: Dyspepsia Stop: 11/27/21 15:46 Hydromorphone HCl (Hydromorphone Inj 0.5 Mg/0.5 Ml Syr) 0.5 mg IV Q3H PRN PRN Reason: MODERATE Pain (Scale 4,5,6) & Pre PT Stop: 11/11/21 15:46 Last Admin: 10/29/21 22:31 Dose: 0.5 mg Documented by: Hydromorphone HCl (Hydromorphone Inj 1 Mg/Ml Syringe) 1 mg IV Q3H PRN PRN Reason: SEVERE Pain (Scale 7,8,9,10) Stop: 11/11/21 15:46 Last Admin: 10/30/21 07:56 Dose: 1 mg Documented by: Hydroxyzine HCl (Hydroxyzine Hcl 25 Mg Tab) 25 mg PO Q8H PRN PRN Reason: Anxiety Stop: 11/27/21 15:46 Acetaminophen (Ofirmev) 1,000 mg in 100 mls @ 400 mls/hr IV Q8H PRN PRN Reason: Pain Rating 1-3 & Pre PT Stop: 10/31/21 15:46 Last Infusion: 10/29/21 13:42 Dose: Infused Documented by: Lorazepam (Ativan) 0.5 mg in 1 mls @ 1 mls/min IV Q8H PRN PRN Reason: Sedation/Anxiety Stop: 11/27/21 15:46 Promethazine HCl 12.5 mg/ (Sodium Chloride) 50.5 mls @ 202 mls/hr IV Q6H PRN PRN Reason: Nausea &/or Vomiting Stop: 11/27/21 15:46 Dexamethasone 8 mg/ Syringe 2 mls @ 1 mls/min IV DAILY SHOLA Stop: 11/29/21 08:59 Last Admin: 10/30/21 09:01 Dose: 1 mls/min Documented by: Influenza Virus Vaccine Quadrival (Do Not Administer Flu Vaccine) 1 ea N/A PRN PRN PRN Reason: Notification Stop: 11/27/21 15:46 Lorazepam (Lorazepam 0.5 Mg Tab) 0.5 mg PO Q8H PRN PRN Reason: Sedation/Anxiety Stop: 11/27/21 15:46 Lorazepam (Lorazepam 1 Mg Tab) 1 mg PO ONE PRN; Protocol PRN Reason: EtoH Withdrawal AWSS 6-10 Magnesium Hydroxide (Magnesium Hydroxide Susp 30 Ml Udc) 30 ml PO Q24H PRN PRN Reason: Constipation Stop: 11/27/21 15:46 Metoclopramide HCl (Metoclopramide Hcl Inj 5 Mg/Ml 2 Ml Vial) 10 mg IV Q6H PRN PRN Reason: Nausea &/or Vomiting Stop: 11/27/21 15:46 Naloxone HCl (Naloxone Hcl 0.4 Mg/1 Ml Vial/Carp) 0.1 mg IV Q5M PRN PRN Reason: Oversedation/Resp depression Stop: 11/27/21 15:46 Ondansetron HCl (Ondansetron Inj 2 Mg/Ml 2 Ml Vial) 4 mg IV Q6H PRN PRN Reason: Nausea &/or Vomiting Stop: 11/27/21 15:46 Ondansetron HCl (Ondansetron 4 Mg Od Tab) 4 mg PO Q6H PRN PRN Reason: Nausea Stop: 11/27/21 15:46 Oxycodone HCl (Oxycodone Hcl Ir 5 Mg Tab (Immediate Release)) 5 - 10 mg PO Q4H PRN PRN Reason: Pain & Pre PT Stop: 11/11/21 15:46 Last Admin: 10/30/21 14:38 Dose: 10 mg Documented by: Pantoprazole Sodium (Pantoprazole 40 Mg Tab) 40 mg PO QAM SHOLA Stop: 11/28/21 08:59 Last Admin: 10/30/21 07:57 Dose: 40 mg Documented by: Pneumococcal Polyvalent Vaccine (Do Not Administer Pneumococcal Vaccine) 1 ea N/A PRN PRN PRN Reason: Notification Stop: 11/27/21 15:46 Senna/Docusate Sodium (Docusate Sodium/Senna 50/8.6mg Tab) 2 tab PO HS SHOLA Stop: 11/27/21 20:59 Last Admin: 10/29/21 20:58 Dose: Not Given Documented by: Sodium Biphosphate/Sodium Phosphate (Sod Phosphate/Sod Biphosphate Enema 132 Ml Btl) 132 ml [place] ONE PRN PRN Reason: Constipation Stop: 11/27/21 15:46 Tramadol HCl (Tramadol Hcl 50 Mg Tablet) 50 - 100 mg PO Q4H PRN PRN Reason: Moderate-Severe pain & Pre PT Stop: 11/27/21 15:46 Last Admin: 10/30/21 16:51 Dose: 50 mg Documented by:
[2021-10-30] MEDS: DOCUSATE SODIUM/SENNA 50/8.6MG TAB PO SCH (20:38)
[2021-10-31] MEDS: oxyCODONE HCL IR 5 MG TAB (IMMEDIATE RELEASE) PO PRN ×3 (01:43→11:08)
[2021-10-31] MEDS: dexAMETHasone 8 MG in SYRINGE 0 ML IV SCH (07:34)
[2021-10-31] MEDS: PANTOprazole 40 MG TAB PO SCH (07:34)
[2021-10-31] MEDS: traMADol HCL 50 MG TABLET PO PRN (08:48)
--- NOTE | 2021-10-31 08:56 | Discharge Summary ---
Date of Service October 31, 2021 Principal Diagnosis Lumbar spinal stenosis with return of medication Discharge Data Allergies Allergy/AdvReac Type Severity Reaction Status Date / Time No Known Allergies Allergy Verified 10/28/21 08:48 Consultations 10/28/21 15:47 Consult Hospitalist Routine Procedures Performed Operation Date: 10/28/21 10:05 Actual Procedures p L4-S1 Decompression, L3-S1 Fusion, Spinal Cord Monitoring, Application of I- Factor (Not Applicable) - Heraclio Betts DO Operation Date: 10/29/21 07:45 <No data on this case meets the specified criteria> Ordered Studies 10/28/21 10:05 [place] lumbar spine 2-3V Routine Hospital Course (1) Neurogenic claudication due to lumbar spinal stenosis: Patient with a medical history patient presents with metabolic arthroplasty Vivi is a pleasant patient. #2 postop day 3 pain was controlled with epidural. Strength testing patient for discharge home per discharge orders instructions from chart review. Total Time Total Time Spent Total Time Spent (In Minutes): 20 minutes Discharge Plan Discharge Items Patient Disposition: Home - Self-Care Reason For Visit: Spinal Stenosis,Lumbar Region without Neurogenic Discharge Diagnosis: Lumbar spinal stenosis with neurogenic claudication Activity: As commented below Non-emergency contact: Primary Care Provider Call non-emergency contact if: you have any medication questions Follow-up/Referrals: Jorge Luis Tillman DO [Primary Care Provider] - Diet: Regular Addtl Attending Provider Instructions: ACTIVITY RECOMMENDATIONS: SELF CARE INSTRUCTIONS AFTER THORACIC/LUMBAR FUSIONS 1. You may walk to your tolerance. It is good exercise for your legs and back. Expect some back and intermittent leg aches and pains. 2. You may perform "counter-top" level activities (make a sandwich, chele with a project, etc.). 3. No bending or lifting of more than 10 pounds or back twisting of any nature (roll like a log when turning in bed). 4. You may ride in a car for 20-30 minutes at a time. No driving until after your first visit with your doctor. 5. Frequent changes of position and restricting sitting to 30 minutes at a time will help limit the amount of back spasms and stiffness you may experience. 6. You may discontinue the use of ambulatory aids (cane, crutches, etc.) once your strength and confidence allow. 7. You may back line cook the shower and let water strike your incision when you arrive home at least once daily. Do not take a tub bath, sit in a hot tub or go into a swimming pool until after your first recheck in the office. SPECIAL CARE INSTRUCTIONS: VERY IMPORTANT TO READ AND REVIEW A. Your surgical incision has been closed with a cosmetic suture under the skin that will dissolve in about 6 weeks. In 14 days, you can use a pair of clean scissors and cut the suture that is left outside of the skin at the ends of your incision. 1. The small skin tapes can be removed 7 days after surgery if they have not fallen off by that point. 2. You may keep the wound open to air as much as possible to promote healing after post-op day number 5 unless told otherwise by your doctor. 3. If you think the wound looks like it is becoming infected (redness or worsening drainage) and/or you are experiencing fever, chill or worsening back pain and muscle spasms, contact the office so that we may evaluate you as soon as possible. B. Complications are uncommon, but please contact us if you have any signs or symptoms of: 1. wound infection (fever higher than 102.5 degrees F, redness, separation of wound, drainage, or increasing pain from the incision) 2. blood clots in legs (pain, swelling, redness and warmth in legs) 3. urinary tract infection (fever higher than 102.5 degrees F, burning upon urination or increased frequency of urination) 4. nerve problems (inability to walk on your toes or heels, numbness, loss of bowel or bladder control) 5. any other symptoms that concern you C. Please call the office at if you have any concerns or questions about your operation or recovery. D. No smoking! Smoking drastically decreases the chance of a solid fusion. E. Do not take any anti-inflammatory medications (Indocin, Advil, Motrin, Aspirin, Naprosyn, etc.) as these may inhibit the chance of a solid fusion. Tylenol is okay to take for pain. MANAGING PAIN AFTER SPINAL SURGERY 1. Narcotic medication is intended for short-term use and will be provided for surgical pain. Surgical pain usually lasts for a period of 4-6 weeks. Narcotic medication includes Percocet, Vicodin, Darvocet, Tylenol #3 or Lortab. 2. Longer-term pain is more appropriately treated with non-narcotic medication such as Tylenol ES. 3. Muscle spasm is not appropriately treated with narcotics. Muscle relaxers such as Soma, Flexeril or Skelaxin can be used along with Tylenol ES. 4. Remember that we all live with some "aches and pains". This is not unusual or uncommon after an injury or as we get older. a. Back pain is expected and may include muscle spasms for 4 to 6 weeks after surgery. The pain should gradually improve. If the pain worsens for no apparent reason, please contact the office. b. Intermittent leg pain may also be experienced and should not be concerned about unless it worsens for no apparent reason. If so, please contact the office. 5. We will provide appropriate medication within the normal guidelines of their prescribed use. We will also be very cautious and aware of potential abuse and extended duration of patients' medication needs. a. Pain medications are for your comfort and to assist with sleep and rest so that the tissue can heal. They are not provided in order to return to normal activity and should not be used through the day. To do so or worsening pain at night can result from ongoing tissue damage and development of tolerance to the prescribed medicine. 6. Please allow 2-3 days to process refills. Prescriptions will not be mailed but must be picked up at the office. FOLLOW UP VISIT: Keep your scheduled follow-up appointment. Any questions, please call the office at . Addtl Steam Finisher Provider Instructions: An overnight pulse oximetry test was performed revealing multiple episodes of desaturation while sleeping. Therefore, you are being provided with supplemental oxygen to wear at night while sleeping. It is also recommended to obtain a referral to sleep medicine as soon as able for consideration of a formal overnight sleep study as you may have obstructive sleep apnea, which cannot be diagnosed with this test. Pending Studies at Discharge: No Stand-Alone Forms: [employer], Smoking Cessation Medications and DC Order Prescriptions: New (DME) Oxygen Home Liters Per Minute See Rx Instructions .Route Qty: 1 RF: 0 tramadol 50 mg tablet 50 mg PO Q6H PRN (Reason: pain, moderate) Qty: 30 RF: 0 oxycodone 5 mg tablet 5 mg PO Q6H PRN (Reason: pain, severe) Qty: 30 RF: 0 Continued pantoprazole 20 mg Tablet,Delayed Release (Dr/Ec) 20 mg PO QAM RF: 0 Discharge Orders: Discharge Order (Routine); Ordered 10/31/21 Ordered By: Heraclio Betts Admission Data Admit Date/Time: 10/28/21 13:09 Attending Provider: Heraclio Betts Admit Provider: Heraclio Betts Primary Care Provider: Jorge Luis Tillman Other Providers: Fatou Murillo
== END 2021-10-31 14:02 | disposition home or self-care (01) | DRG 454 ==
LOC: ASU 07:46 → 3N 13:09